=== PATIENT | male | born 1960 | race Caucasian/White ===

== ENCOUNTER 2016-06-20 05:35 | Day surgery (SDC) | payer OTHER ==
--- NOTE | 2016-06-18 11:57 | GHP ---
[f rep st] HISTORY AND PHYSICAL DATE OF ADMISSION: 06/20/2016 This is for upcoming surgery, date of admission of June 20, 2016. HISTORY OF PRESENT ILLNESS: The patient is a very pleasant male who comes to our office for evaluati on of a palpable mass that was discovered on a routine physical in early May of 2016. It does n ot cause any pain or discomfort. He has never had previous surgery in the area. He has no genitouri nary or gastrointestinal symptoms related to the hernia or otherwise. PAST MEDICAL HISTORY: None. ALLERGIES: Prozac. MEDICATIONS: None. PAST SURGICAL HISTORY: Left knee surgery. SOCIAL HISTORY: Nonsmoker, no alcohol. Lives with significant other. REVIEW OF SYSTEMS: He had a negative 10-point review of systems. PHYSICAL EXAM: GENERAL: The patient is a pleasant male in no apparent distress. HEAD AND NECK: No rmocephalic, atraumatic. CHEST: CTA bilaterally. HEART: Regular rhythm and rate. ABDOMEN: Demon strates a small umbilical mass consistent with hernia, soft, reducible. EXTREMITIES: No lower extre mity edema. Normal dorsalis pedis pulses to palpation. IMPRESSION: Umbilical hernia. RECOMMENDATION: Open umbilical hernia repair is discussed with the patient in detail, including risk s of recurrence, bleeding, nerve injury resulting in permanent numbness, infection. The patient elec ts to proceed with scheduling. I also discussed the risk of bowel injury. /[id number]/MODL
[2016-06-20] MEDS ORDERED: CEFAZOLIN 2 GM/DEXTROSE/100 ML BAG IV ONE (05:44)
[2016-06-20] MEDS ORDERED: LIDOCAINE 1% 5 ML SDV ONE (05:45)
[2016-06-20] MEDS ORDERED: BUPIVACAINE 0.5% 30 ML SDV ONE (06:46)
[2016-06-20] MEDS ORDERED: MIDAZOLAM 2 MG/2 ML VIAL ONE (07:10)
[2016-06-20] MEDS ORDERED: fentaNYL 100 MCG/2 ML INJ ONE ×2 (07:18)
[2016-06-20] MEDS ORDERED: PROPOFOL/EMULSION 500 MG/50 ML BOTTLE IV ONE (07:20)
[2016-06-20] MEDS ORDERED: ceFAZolin 2 GM/DEXTROSE 100 ML IV ONE ×2 (07:30→08:00)
[2016-06-20] MEDS ORDERED: PROPOFOL 200 MG/20 ML VIAL ONE ×2 (07:48→07:52)
[2016-06-20] MEDS ORDERED: ONDANSETRON 4 MG/2 ML VIAL ONE (09:24)
[2016-06-20] MEDS ORDERED: KETOROLAC 30 MG/1 ML SDV ONE (09:24)
[2016-06-20] MEDS ORDERED: DEXAMETHASONE 4 MG/ML VIAL ONE (09:24)
== END 2016-06-20 10:25 | disposition home or self-care (01) ==
LOC: FSGY 05:35 → FPAT 05:35
PROVIDERS: ATTEND Surgery
PROC: 0WQF0ZZ Repair Abdominal Wall, Open Approach (ICD-10-PCS; principal; 2016-06-20 07:15)
DX: K42.9 Umbilical hernia without obstruction or gangrene (principal)
CPT/HCPCS: C1781; J0690; J1100; J1885; J2250; J2405; J2704; J3010